=== PATIENT | male | born 1970 ===

== ENCOUNTER → 2023-01-26 | Outpatient (CLI) | payer OTHER ==
[~2023-01-26] MED LIST: CEPH500 PO; HYDACE5 PO; NAPR500 PO; SILSUL1TC TOP
[2023-01-26 15:25] LABS: Stool Occult Bld Immuno 1 Negative (NEGATIVE)
== END ==
LOC: LAB SHORT 07:00 → LAB 07:00
PROVIDERS: Family Medicine
DX: Z12.11 Encounter for screening for malignant neoplasm of colon (principal)
CPT/HCPCS: G0328

== ENCOUNTER → 2023-07-21 | Outpatient (CLI) | payer OTHER | END | disposition home or self-care (01) | LOC: LAB EV 18:02 → LAB SHORT 18:02 | DX: R30.0 Dysuria (principal) ==

== ENCOUNTER 2024-05-22 07:30 | Day surgery (SDC) | payer OTHER ==
[~2024-05-22] VITALS: Ht 160 cm; Wt 77.9 kg
[~2024-05-22 07:30] MED LIST changes: +Ciprofloxacin 0.3% Opth Soln 2.5 ML BTL ONE; +Lidocaine 1%-Epineph 1:200000 30 ML SDV ONE; +Triamcinolone Inj Susp 40 MG / ML 1ML Vial ONE
[2024-05-22] MEDS ORDERED: Lactated Ringer's 1,000 ML IV ONE ×3 (07:54→11:24)
[2024-05-22] MEDS ORDERED: propofoL 20 ML IV ONE (08:46)
[2024-05-22] MEDS ORDERED: FentaNYL Citrate 50 MCG/ML 2 ML Injection ONE (08:46)
[2024-05-22] MEDS ORDERED: propofoL 50 ML IV ONE (08:49)
[2024-05-22] MEDS ORDERED: Remifentanil 1 MG Vial ONE ×2 (08:49→11:16)
[2024-05-22] MEDS ORDERED: Rocuronium Bromide 10 MG/ML 5ML Injection IV ONE (09:05)
--- NOTE | 2024-05-22 09:05 | NUR ---
05/22/24 0905 GUERRERO BARCLAY TO BR TO VOID. BACK TO IKE, RAILS UP, CALL LIGHT IN REACH. FRIEND MARRY AT BEDSIDE.
[2024-05-22] MEDS ORDERED: Dexamethasone Sod Phos 10 MG/ML 1ML VIAL ONE (09:22)
[2024-05-22] MEDS ORDERED: Ondansetron HCl 2 MG / ML 2ML Vial ONE (09:22)
[2024-05-22] MEDS ORDERED: Glycopyrrolate 0.2 MG/ML 5ML VIAL ONE (09:25)
[2024-05-22] MEDS ORDERED: EPINEPhrine HCl 1 MG/ML 1ML Amp XX ONE (09:43)
[2024-05-22] MEDS ORDERED: ePHEDrine Sulfate 50 MG/ML 1ML Injection ONE (09:49)
[2024-05-22] MEDS ORDERED: HYDROmorphone HCl/Pf 1MG SYR ONE (11:02)
[2024-05-22] MEDS ORDERED: propofoL 100 ML IV ONE (11:17)
[2024-05-22] MEDS ORDERED: Bupivacaine 0.5% W/EPI 1:200000 SDV 30 ML Vial ONE (12:06)
[2024-05-22 13:02] VITALS: BP 111/74
== END 2024-05-22 13:17 | disposition home or self-care (01) ==
LOC: ORSCSDS 07:30
PROVIDERS: Otolaryngology
PROC: 09R Ear, Nose, Sinus, Replacement (ICD-10-PCS; principal; 2024-05-22 09:00)
PROC: 09BB0ZZ Excision of Right Mastoid Sinus, Open Approach (ICD-10-PCS; principal; 2024-05-22 09:00)
PROC: 0HB2XZZ Excision of Right Ear Skin, External Approach (ICD-10-PCS; principal; 2024-05-22 09:00)
DX: H71.93 Unspecified cholesteatoma, bilateral (principal); Q17.8 Other specified congenital malformations of ear; F17.210 Nicotine dependence, cigarettes, uncomplicated
CPT/HCPCS: 88304; A9270; C1763; J0171; J1100; J1171; J2405; J2704; J3010; J3301; J7120

== ENCOUNTER → 2024-10-15 | Outpatient (CLI) | payer OTHER ==
[~2024-10-15] MED LIST changes: -Ciprofloxacin 0.3% Opth Soln 2.5 ML BTL ONE; -Lidocaine 1%-Epineph 1:200000 30 ML SDV ONE; -Triamcinolone Inj Susp 40 MG / ML 1ML Vial ONE
[2024-10-15 13:27] LABS: BASOPHILS ABSOLUTE AUTO 0.05 K/mm3 (0.00-0.23); BASOPHILS PERCENT AUTO 1 % (0-2); EOSINOPHILS ABSOLUTE AUTO 0.13 K/mm3 (0.00-0.68); EOSINOPHILS PERCENT AUTO 2 % (0-6); Hematocrit 40.5 % (37.0-53.0); Hemoglobin 14.6 g/dL (13.5-17.5); IMMATURE GRAN ABSOLUTE AUTO 0.01 K/mm3 (0.00-0.10); IMMATURE GRAN PERCENT AUTO 0 % (0-1); LYMPHOCYTES ABSOLUTE AUTO 2.31 K/mm3 (0.84-5.20); LYMPHOCYTES PERCENT AUTO 36 % (21-46); MONOCYTES ABSOLUTE AUTO 0.56 K/mm3 (0.16-1.47); MONOCYTES PERCENT AUTO 9 % (4-13); Mean Corpuscular HGB Conc 36.0 g/dL (31.5-36.5); Mean Corpuscular Volume 95 fL (80-100); NEUTROPHILS ABSOLUTE AUTO 3.29 K/mm3 (1.96-9.15); NEUTROPHILS PERCENT AUTO 52 % (41-73); NRBC ABSOLUTE 0.00 K/mm3 (0.00-0.02); NRBC Auto 0.0 /100 WBC (0.0-0.2); Platelet Count 270 K/mm3 (150-400); RDW Coefficient Variation 12.1 % (11.7-14.2); RDW Standard Deviation 42.1 fL (35.1-46.3)
[2024-10-15 14:04] LABS: Alanine Aminotransfer (ALT/SGP 29.0 U/L (12-78); Albumin, Blood 3.9 g/dL (3.4-5.0); Albumin/Globulin Ratio 1.1 (0.8-1.8); Anion Gap 13.0 mmol/L (3-11); Aspartate Aminotrans (AST/SGOT 30.0 U/L (12-37); Bilirubin, Total 0.7 mg/dL (0.1-1.0); Blood Urea Nitrogen 7.0 mg/dL (8-24); CO2, Blood 26.0 mmol/L (21-32); Calcium, Blood 9.2 mg/dL (8.5-10.1); Chloride, Blood 102.0 mmol/L (98-108); Creatinine, Blood 0.82 mg/dL (0.60-1.20); Globulin, Blood 3.5 g/dL (2.2-4.0); Glucose, Blood 97.0 mg/dL (70-99); Potassium, Blood 3.6 mmol/L (3.5-5.5); Sodium, Blood 137.0 mmol/L (136-145); Total Protein, Blood 7.4 g/dL (6.4-8.2)
== END ==
LOC: LAB SHORT 13:23 → LAB 13:23
PROVIDERS: Chiropractor
DX: R07.9 Chest pain, unspecified (principal)
CPT/HCPCS: 80053; 83690; 84484; 85025; 85379

== ENCOUNTER 2025-01-13 07:04 | Day surgery (SDC) | payer OTHER ==
[~2025-01-13] VITALS: Ht 165.1 cm; Wt 76.7 kg
[2025-01-13] MEDS ORDERED: Lidocaine 2%-Epineph 1:200000 20 ML SDV ONE (07:07)
[2025-01-13] MEDS ORDERED: Triamcinolone Inj Susp 40 MG / ML 1ML Vial ONE (07:07)
--- NOTE | 2025-01-13 08:58 | NUR ---
01/13/25 0857 PAMELA ZIMMERMAN PT READY FOR OR, PT PRESENTS WITH A FRIEND MARRY. PT DENIES THIS BEING A SPOUSE, AND WHEN ASKED IF HE WOULD LIKE HER BROUGHT BACK, HE DENIES THE NEED FOR HER IN THE PRE OP AREA. PT IS PRIMARILY ICELANDIC SPEAKING, TURKMEN A SECONDARY. PT ABLE TO ANSWER QUESTIONS AND GIVE HX. PT CONFIRMS HE CANNOT READ TURKMEN, BUT THAT HE HAS A PERSON AT HOME WHO CAN READ THE TURKMEN DISCHARGE INSTRUCTIONS. PT ALSO HAD THIS SAME PROCEDURE PERFORMED ON THE R SIDE SEVERAL MONTHS AGO. PT IS CONFIDENT IN HIS ABILITY TO CARE FOR HIMSELF AT HOME. RECOVERY ADVISED OF COMMUNICATION BACKGROUND. PT HAS CALL LIGHT IN REACH, RESTING W EYES CLOSED AT THIS TIME. REVIEWED PRE OP AND POST TEACHING. PT DENIES QUESTIONS MULTIPLE TIMES.
[2025-01-13] MEDS ORDERED: FentaNYL Citrate 50 MCG/ML 2 ML Injection ONE ×3 (09:01→12:16)
[2025-01-13] MEDS ORDERED: Rocuronium Bromide 10 MG/ML 5ML Injection IV ONE ×2 (09:01→09:41)
[2025-01-13] MEDS ORDERED: Glycopyrrolate 0.2 MG/ML 5ML VIAL ONE (09:13)
[2025-01-13] MEDS ORDERED: Dexamethasone Sod Phos 10 MG/ML 1ML VIAL ONE ×2 (09:26→09:30)
--- NOTE | 2025-01-13 10:01 | NUR ---
01/13/25 Tana1 Janis Packer 1ML OF EPI 1MG/ML USED TO SOAK GELFOAM FOR CASE.
[2025-01-13] MEDS ORDERED: Ondansetron HCl 2 MG / ML 2ML Vial ONE (12:28)
[2025-01-13] MEDS ORDERED: Sugammadex Sodium 200 MG/2ML SDV (100 MG/ML) ONE (12:29)
[2025-01-13 13:35] VITALS: BP 111/84
== END 2025-01-13 14:22 | disposition home or self-care (01) ==
LOC: ORSCSDS 07:04
PROVIDERS: Otolaryngology
PROC: 0NB60ZZ Excision of Left Temporal Bone, Open Approach (ICD-10-PCS; principal; 2025-01-13 09:00)
DX: H71.93 Unspecified cholesteatoma, bilateral (principal); Q17.8 Other specified congenital malformations of ear; F17.210 Nicotine dependence, cigarettes, uncomplicated
CPT/HCPCS: A9270; J0166; J1100; J2405; J2704; J3010; J3301; J7120